=== PATIENT | male | born 1975 | race Caucasian/White ===

== ENCOUNTER 2018-01-28 09:46 | Emergency (ER) | payer OTHER ==
[~2018-01-28] VITALS: Ht 175.3 cm; Wt 79.9 kg
[2018-01-28] MEDS ORDERED: ASPI-650 PO (10:22)
[2018-01-28] MEDS ORDERED: KETOROLAC 30 MG/1 ML IVPush ONE (10:30)
[2018-01-28] MEDS ORDERED: LORazepam 2 MG/ML, 1ML IVPush ONE (10:30)
[2018-01-28] MEDS ORDERED: ASPIRIN 81 MG TABLET CHEW PO ONE (10:30)
[2018-01-28] MEDS ORDERED: KETOROLAC 30 MG/1 ML ONE (10:44)
[2018-01-28] MEDS ORDERED: LORazepam 2 MG/ML, 1ML ONE (10:44)
[2018-01-28] MEDS ORDERED: ASPIRIN 81 MG TABLET CHEW ONE (10:44)
[2018-01-28 11:03] LABS: ALBUMIN 4.3 g/dL (3.4-5.0); ANION GAP 11 mmol/L (5-15); CALCIUM 8.4 mg/dL (8.5-10.1); CHLORIDE 109 mmol/L (98-107); CREATININE 0.72 mg/dL (0.7-1.3)
[2018-01-28 11:06] LABS: TROPONIN I < 0.015 ng/mL (0.000-0.045)
[2018-01-28 11:17] LABS: BASOPHILS # (AUTO) 0.07 x10^3/uL (0-0.1); BASOPHILS % (AUTO) 1 % (0-1); EOSINOPHILS # (AUTO) 0.07 x10^3/uL (0-0.4); EOSINOPHILS % (AUTO) 1 % (1-7); LYMPHOCYTES # (AUTO) 2.14 x10^3/uL (1-3.4); LYMPHOCYTES % (AUTO) 17 % (22-44); MD NO; MEAN CORPUSCULAR HEMOGLOBIN 34.8 pg (27.5-34.5); MEAN CORPUSCULAR VOLUME 102.1 fL (81-97); MEAN PLATELET VOLUME 10.6 fL (7.4-10.4); MONOCYTES # (AUTO) 0.88 x10^3/uL (0.2-0.8); MONOCYTES % (AUTO) 7 % (2-9); NEUTROPHILS # (AUTO) 9.65 x10^3/uL (1.8-6.8); NEUTROPHILS % (AUTO) 75 % (42-75); PLATELET COUNT 223 x10^3/uL (130-400); RED BLOOD COUNT 4.57 x10^6/uL (4.38-5.82); RED CELL DISTRIBUTION WIDTH 13.5 % (9.4-14.8)
[2018-01-28 11:39] VITALS: BP 155/104
== END 2018-01-28 11:55 | disposition home or self-care (01) ==
LOC: ED 11:45
DX: R07.89 Other chest pain (principal)
CPT/HCPCS: 36415; 71045; 80048; 82040; 83880; 84484; 85025; 93005; 96374; 96375; 99284; J1885; J2060